=== PATIENT | male | born 1945 | race Caucasian/White ===

== ENCOUNTER 2019-10-25 15:23 | Inpatient (IN) | payer MEDICARE, OTHER ==
[2019-10-25] MEDS ORDERED: Sodium Phosphate ADULT ENEMA* 118 ml bottle PR ONE (15:32)
[2019-10-25] MEDS ORDERED: Acetaminophen TAB* 325 MG PO PRN (15:32)
[2019-10-25] MEDS ORDERED: Ondansetron ODT TAB* 4 MG SL PRN (15:32)
[2019-10-25] MEDS: Morphine INJ* 4 MG/ML 1 ML SYRINGE (NEW SYRINGE VERSION) IV PRN (16:58)
[2019-10-25] MEDS: NS 0.9% 1000 ML** 1,000 ML IV SCH (16:58)
[2019-10-25] MEDS: Enoxaparin(*) 40 MG/0.4 ML SYR SUBCUT SCH (16:58)
[2019-10-25] MEDS: Polyethylene Glycol 3350* 17 GM PACKET PO SCH (20:35)
[2019-10-25] MEDS: oxyCODONE SR TAB(*) 15 MG TAB.SR PO SCH (20:35)
[2019-10-26] MEDS: oxyCODONE TAB* 5 MG TAB PO PRN ×2 (02:01→06:26)
[2019-10-26] MEDS: Levothyroxine TAB* 100 MCG TAB PO SCH (05:34)
[2019-10-26 06:58] LABS: Albumin 3.2 g/dL (3.2-5.2); Albumin/Globulin Ratio 1.1 (1-3); Calcium 8.5 mg/dL (8.6-10.3); EGFR African American 111.1 (>60); EGFR Non-African American 91.8 (>60); Potassium 4.7 mmol/L (3.5-5.0); Total Protein 6.2 g/dL (6.4-8.9)
[2019-10-26] MEDS: oxyCODONE SR TAB(*) 15 MG TAB.SR PO SCH ×2 (08:56→20:38)
[2019-10-26] MEDS: Lactulose* 15 ML UDC PO SCH ×3 (08:57→20:38)
[2019-10-26] MEDS: Omeprazole CAP(NF) 10 MG CAP PO SCH (09:06)
--- NOTE | 2019-10-26 10:10 | PN ---
Progress Note - Progress Note Date of Service: 10/26/19 SOAP: Subjective: []No better today. He has had more UO and inspector poising urine. Still nausea and not eating much. No BM today. Sever back and flank pain that has been present. Relevant history: one week N/V then constipation, not eating much, dark concentrated urine but also some groin edema. Acetaminophen (Tylenol Tab*) 650 mg PO Q4H PRN PRN Reason: Pain - Mild or MURGUIA Enoxaparin Sodium (Lovenox(*)) 40 mg SUBCUT Q24H [facility] Last Admin: 10/25/19 16:58 Dose: 40 mg Sodium Chloride (Ns 0.9% 1000 Ml) 1,000 mls @ 150 mls/hr IV PER RATE [facility] Last Admin: 10/25/19 16:58 Dose: 150 mls/hr Lactulose (Lactulose*) 15 ml PO TID [facility] Last Admin: 10/26/19 08:57 Dose: 15 ml Levothyroxine Sodium (Synthroid Tab*) 100 mcg PO DAILY@0600 [facility] Last Admin: 10/26/19 05:34 Dose: 100 mcg Lorazepam (Ativan Tab(*)) 0.5 mg PO Q4H PRN PRN Reason: nausea/anxiety/insomnia Morphine Sulfate (Morphine Inj (Syringe)*) 4 mg IV Q4H PRN PRN Reason: PAIN - SEVERE Last Admin: 10/25/19 16:58 Dose: 4 mg Omeprazole (Prilosec Cap(Nf)) 10 mg PO DAILY [facility] Last Admin: 10/26/19 09:06 Dose: Not Given Ondansetron HCl (Zofran Odt Tab*) 4 mg SL Q6H PRN PRN Reason: NAUSEA/VOMITING Oxycodone HCl (Oxycontin(*)) 15 mg PO BID [facility] Last Admin: 10/26/19 08:56 Dose: 15 mg Oxycodone HCl (Roxycodone Tab*) 10 mg PO Q4H PRN PRN Reason: PAIN - MODERATE Last Admin: 10/26/19 06:26 Dose: 10 mg Polyethylene Glycol/Electrolytes (Miralax*) 17 gm PO 2100 [facility] Last Admin: 10/25/19 20:35 Dose: 17 gm Prochlorperazine Edisylate (Compazine Inj*) 10 mg IV Q6H PRN PRN Reason: NAUSEA/VOMITING Objective: [] Vital Signs Temp Pulse Resp BP Pulse Ox 99 F 78 18 137/85 98 10/26/19 03:20 10/26/19 03:20 10/26/19 08:58 10/26/19 03:20 10/26/19 03:20 HEENT: OM moist today, no LAD CTA RRR S1S2 +BS distended, NT rectal: no stool in vault. NRT Groin: scrotal edema Ext tr edema Assessment: []74 year old with 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 The adrenal tumor was non secreting in 2016. Presentation yesterday with one week of constipation, Nausea and abd pain , labs w/ hyponatremia. Ddx for decreased sodium is lead by dehydration based on history, SIADH is possible but uncommon in adenocarcinima, could have adrenal insufficiency. Plan: []1. Continue NS for time being, follow NA 2. Continue Lactulose TID 3. Check AM cortisone 4. No change in pain medication. 5. If in hospital on Tuesday, US guided Bx of adrenal bed mass.
[2019-10-26] MEDS: NS 0.9% 1000 ML** 1,000 ML IV SCH ×2 (13:32→20:39)
[2019-10-26] MEDS: Enoxaparin(*) 40 MG/0.4 ML SYR SUBCUT SCH (15:42)
[2019-10-26] MEDS: Morphine INJ* 4 MG/ML 1 ML SYRINGE (NEW SYRINGE VERSION) IV PRN ×2 (18:19→23:59)
[2019-10-26] MEDS: LORazepam TAB(*) 0.5 MG PO PRN (20:38)
[2019-10-26] MEDS: Polyethylene Glycol 3350* 17 GM PACKET PO SCH (20:38)
[2019-10-27 04:59] LABS: Hematocrit 37 % (42-52); Hemoglobin 13.3 g/dL (14.0-18.0); Mean Corpuscular HGB Conc 36 g/dL (31-36); Mean Corpuscular Hemoglobin 33 pg (27-31); Mean Corpuscular Volume 93 fL (80-94); Platelet Count 221 10^3/uL (150-450); Red Blood Count 4.02 10^6 /uL (4.18-5.48); Red Cell Distribution Width 13 % (10-15); White Blood Count 11.5 10^3/uL (3.5-10.8)
[2019-10-27 05:04] LABS: ABS Lymphocytes 0.6 10^3/ul (1.0-4.8); ABS Neutrophils 9.5 10^3/ul (1.5-7.7); Eosinophil % 0.3 %; Lymphocyte % 5.4 %
[2019-10-27] MEDS: Morphine INJ* 4 MG/ML 1 ML SYRINGE (NEW SYRINGE VERSION) IV PRN ×2 (05:05→21:14)
[2019-10-27] MEDS: Levothyroxine TAB* 100 MCG TAB PO SCH (05:05)
[2019-10-27 05:16] LABS: Albumin 3.4 g/dL (3.2-5.2); Albumin/Globulin Ratio 1.1 (1-3); BUN/Creatinine Ratio 20.3 (8-20); Calcium 8.1 mg/dL (8.6-10.3); EGFR African American 135.6 (>60); EGFR Non-African American 112.1 (>60); Globulin 3.2 g/dL (2-4); Potassium 4.5 mmol/L (3.5-5.0); Total Bilirubin 1.2 mg/dL (0.2-1.0); Total Protein 6.6 g/dL (6.4-8.9)
[2019-10-27] MEDS: PROCHLORPERAZINE INJ 5 MG/ML 2 ML VIAL IV PRN (05:19)
[2019-10-27] MEDS: Omeprazole CAP(NF) 10 MG CAP PO SCH (09:08)
[2019-10-27] MEDS: Lactulose* 15 ML UDC PO SCH ×3 (09:10→21:15)
[2019-10-27] MEDS: oxyCODONE SR TAB(*) 15 MG TAB.SR PO SCH (09:10)
--- NOTE | 2019-10-27 10:53 | PN ---
Progress Note - Progress Note Date of Service: 10/27/19 SOAP: Subjective: [Feels generally "miserable". He has trouble articulating exactly what he is experiencing. He continues to have generalized pain, but most concentrated in the R flank region. He believes the morphine is more effective in controlling his pain than his usual oxycodone. He would like to switch from long acting oxycodone to long acting morphine. ] Objective: [ Vital Signs: Temp Pulse Resp BP Pulse Ox 97.9 F 90 18 139/79 97 10/27/19 03:19 10/27/19 03:19 10/27/19 09:10 10/27/19 03:19 10/27/19 03:19 Acetaminophen (Tylenol Tab*) 650 mg PO Q4H PRN PRN Reason: Pain - Mild or MURGUIA Enoxaparin Sodium (Lovenox(*)) 40 mg SUBCUT Q24H [facility] Last Admin: 10/26/19 15:42 Dose: Not Given Furosemide (Lasix Iv*) 40 mg IV DAILY [facility] Sodium Chloride (Ns 0.9% 1000 Ml) 1,000 mls @ 150 mls/hr IV PER RATE [facility] Last Admin: 10/26/19 20:39 Dose: 150 mls/hr Lactulose (Lactulose*) 15 ml PO TID [facility] Last Admin: 10/27/19 09:10 Dose: 15 ml Levothyroxine Sodium (Synthroid Tab*) 100 mcg PO DAILY@0600 [facility] Last Admin: 10/27/19 05:05 Dose: 100 mcg Lorazepam (Ativan Tab(*)) 0.5 mg PO Q4H PRN PRN Reason: nausea/anxiety/insomnia Last Admin: 10/26/19 20:38 Dose: 0.5 mg Morphine Sulfate (Morphine Inj (Syringe)*) 4 mg IV Q4H PRN PRN Reason: PAIN - SEVERE Last Admin: 10/27/19 05:05 Dose: 4 mg Morphine Sulfate (Ms Contin(*)) 15 mg PO Q12H [facility] Omeprazole (Prilosec Cap(Nf)) 10 mg PO DAILY [facility] Last Admin: 10/27/19 09:08 Dose: Not Given Ondansetron HCl (Zofran Odt Tab*) 4 mg SL Q6H PRN PRN Reason: NAUSEA/VOMITING Last Admin: 10/26/19 13:29 Dose: 4 mg Oxycodone HCl (Roxycodone Tab*) 10 mg PO Q4H PRN PRN Reason: PAIN - MODERATE Last Admin: 10/26/19 06:26 Dose: 10 mg Polyethylene Glycol/Electrolytes (Miralax*) 17 gm PO 2100 [facility] Last Admin: 10/26/19 20:38 Dose: 17 gm Prochlorperazine Edisylate (Compazine Inj*) 10 mg IV Q6H PRN PRN Reason: NAUSEA/VOMITING Last Admin: 10/27/19 05:19 Dose: 10 mg Senna (Senokot 8.6 Mg Tab*) 1 tab PO BID [facility] Sodium Biphosphate/Sodium Phosphate (Fleet Enema*) 1 bottle ND DAILY PRN PRN Reason: CONSTIPATION Laboratory Results - last 24 hr 10/27/19 10/27/19 04:50 04:50 WBC 11.5 H RBC 4.02 L Hgb 13.3 L Hct 37 L MCV 93 MCH 33 H MCHC 36 RDW 13 Plt Count 221 MPV 7.0 L Neut % (Auto) 85.1 Lymph % (Auto) 5.4 Band[place] % (Auto) 9.1 Eos % (Auto) 0.3 Baso % (Auto) 0.1 Absolute Neuts (auto) 9.5 H Absolute Lymphs (auto) 0.6 L Absolute Monos (auto) 1.0 H Absolute Eos (auto) 0.0 Absolute Basos (auto) 0.0 Absolute Nucleated RBC 0.0 Nucleated RBC % 0.0 Sodium 122 L Potassium 4.5 Chloride 91 L Carbon Dioxide 24 Anion Gap 7 BUN 14 Creatinine 0.69 Est GFR ( Amer) 135.6 Est GFR (Non-Af Amer) 112.1 BUN/Creatinine Ratio 20.3 H Glucose 106 H Calcium 8.1 L Total Bilirubin 1.20 H AST 67 H ALT 41 Alkaline Phosphatase 213 H Total Protein 6.6 Albumin 3.4 Globulin 3.2 Albumin/Globulin Ratio 1.1 Cortisol 22.32 Exam: Gen: uncomfortable appearing 74 yo male, freq changing position HEENT: MMM CV: RRR, no m/r/g Resp: CTA, no w/c/r Abd: distended, hypoactive BS, nonTTP Ext: 2+ LE edema Skin: no rashes] Assessment: []74 year old with 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 The adrenal tumor was non secreting in 2016. Admitted with one week of constipation, Nausea and abd pain, labs w/ hyponatremia. Hyponatremia is improving slightly with IVF, but he has progressive edema with persistent constipation. AM cortisol WNL. Ddx SIADH, hypothyroidism, hypovolemia. Suspect hypothyroidism. Plan: 1. Hyponatremia - check TSH, serum osmolality and urine osmolality (before Lasix) - cont IVF and start lasix to concentrate serum Na levels while excreting excess free water - cont to monitor 2. Constipation - h/o spinal cord injury with decreased rectal sensation - start stimulant laxatives, cont lactulose 3. Malignancy - pending US guided bx of adrenal bed - complete inpatient Tuesday if he remains admitted 4. 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
[2019-10-27] MEDS: Morphine TAB Extended Release (*) 15 MG TAB.ER PO SCH ×2 (11:47→23:29)
[2019-10-27] MEDS: Senna TAB 8.6 mg* TAB PO SCH ×2 (11:47→21:13)
[2019-10-27] MEDS: Furosemide IV* 10 MG/ML VIAL (40 MG) IV SCH (11:48)
[2019-10-27 12:30] LABS: TSH (Thyroid Stimulating Horm) 3.12 mcIU/mL (0.34-5.60)
[2019-10-27 12:57] LABS: Urine Appearance Clear; Urine Bilirubin Negative (Negative); Urine Blood 1+ (Negative); Urine Color Yellow; Urine Glucose Negative (Negative); Urine Ketones Negative (Negative); Urine Nitrite Negative (Negative); Urine Protein Negative (Negative); Urine Specific Gravity 1.006 (1.010-1.030); Urine Urobilinogen Negative (Negative)
[2019-10-27 13:02] LABS: Urine Bacteria Absent (Absent); Urine Red Blood Cell Absent (Absent); Urine Squamous Epithelial Cell Present (Absent); Urine White Blood Cell Absent (Absent)
[2019-10-27] MEDS: NS 0.9% 1000 ML** 1,000 ML IV SCH ×2 (13:16→21:24)
[2019-10-27] MEDS: Enoxaparin(*) 40 MG/0.4 ML SYR SUBCUT SCH (17:21)
[2019-10-27] MEDS: Polyethylene Glycol 3350* 17 GM PACKET PO SCH (21:15)
[2019-10-27] MEDS: LORazepam TAB(*) 0.5 MG PO PRN (23:36)
[2019-10-28] MEDS: Morphine INJ* 4 MG/ML 1 ML SYRINGE (NEW SYRINGE VERSION) IV PRN ×3 (00:16→22:20)
[2019-10-28] MEDS: PROCHLORPERAZINE INJ 5 MG/ML 2 ML VIAL IV PRN (00:23)
[2019-10-28 05:50] LABS: Hematocrit 35 % (42-52); Hemoglobin 12.5 g/dL (14.0-18.0); Mean Corpuscular HGB Conc 36 g/dL (31-36); Mean Corpuscular Hemoglobin 33 pg (27-31); Mean Corpuscular Volume 94 fL (80-94); Mean Platelet Volume 6.7 fL (7.4-10.4); Platelet Count 193 10^3/uL (150-450); Red Blood Count 3.73 10^6 /uL (4.18-5.48); Red Cell Distribution Width 13 % (10-15); White Blood Count 12.2 10^3/uL (3.5-10.8)
[2019-10-28] MEDS: NS 0.9% 1000 ML** 1,000 ML IV SCH (06:10)
[2019-10-28] MEDS: Levothyroxine TAB* 100 MCG TAB PO SCH (06:11)
[2019-10-28] MEDS: oxyCODONE TAB* 5 MG TAB PO PRN ×2 (06:11→19:58)
[2019-10-28 06:15] LABS: BUN/Creatinine Ratio 14.6 (8-20); Calcium 7.9 mg/dL (8.6-10.3); EGFR African American 111.1 (>60); EGFR Non-African American 91.8 (>60); Magnesium 1.8 mg/dL (1.9-2.7); Potassium 4.5 mmol/L (3.5-5.0)
[2019-10-28] MEDS: Lactulose* 15 ML UDC PO SCH ×3 (08:59→21:16)
[2019-10-28] MEDS: Furosemide IV* 10 MG/ML VIAL (40 MG) IV SCH (09:00)
[2019-10-28] MEDS: Senna TAB 8.6 mg* TAB PO SCH ×3 (09:00→21:15)
[2019-10-28] MEDS: Omeprazole CAP(NF) 10 MG CAP PO SCH (09:17)
--- NOTE | 2019-10-28 10:34 | PN ---
Progress Note - Progress Note Date of Service: 10/28/19 SOAP: Subjective: [Remains constipated. Remains uncomfortable. Reports he is having difficulty remembering the details of our conversation yesterday. ] Objective: [ Vital Signs: Temp Pulse Resp BP Pulse Ox 97.9 F 90 18 126/72 94 10/28/19 07:15 10/28/19 07:15 10/28/19 08:56 10/28/19 07:15 10/28/19 07:15 Acetaminophen (Tylenol Tab*) 650 mg PO Q4H PRN PRN Reason: Pain - Mild or MURGUIA Enoxaparin Sodium (Lovenox(*)) 40 mg SUBCUT Q24H [facility] Last Admin: 10/27/19 17:21 Dose: Not Given Furosemide (Lasix Iv*) 40 mg IV DAILY [facility] Last Admin: 10/28/19 09:00 Dose: 40 mg Lactulose (Lactulose*) 15 ml PO TID [facility] Last Admin: 10/28/19 08:59 Dose: 15 ml Levothyroxine Sodium (Synthroid Tab*) 100 mcg PO DAILY@0600 [facility] Last Admin: 10/28/19 06:11 Dose: 100 mcg Lorazepam (Ativan Tab(*)) 0.5 mg PO Q4H PRN PRN Reason: nausea/anxiety/insomnia Last Admin: 10/27/19 23:36 Dose: 0.5 mg Morphine Sulfate (Morphine Inj (Syringe)*) 4 mg IV Q4H PRN PRN Reason: PAIN - SEVERE Last Admin: 10/28/19 00:16 Dose: 4 mg Morphine Sulfate (Ms Contin(*)) 15 mg PO Q12H [facility] Last Admin: 10/27/19 23:29 Dose: 15 mg Omeprazole (Prilosec Cap(Nf)) 10 mg PO DAILY [facility] Last Admin: 10/28/19 09:17 Dose: Not Given Ondansetron HCl (Zofran Odt Tab*) 4 mg SL Q6H PRN PRN Reason: NAUSEA/VOMITING Last Admin: 10/26/19 13:29 Dose: 4 mg Oxycodone HCl (Roxycodone Tab*) 10 mg PO Q4H PRN PRN Reason: PAIN - MODERATE Last Admin: 10/28/19 06:11 Dose: 10 mg Polyethylene Glycol/Electrolytes (Miralax*) 17 gm PO 2100 [facility] Last Admin: 10/27/19 21:15 Dose: 17 gm Prochlorperazine Edisylate (Compazine Inj*) 10 mg IV Q6H PRN PRN Reason: NAUSEA/VOMITING Last Admin: 10/28/19 00:23 Dose: 10 mg Senna (Senokot 8.6 Mg Tab*) 2 tab PO BID [facility] Sodium Biphosphate/Sodium Phosphate (Fleet Enema*) 1 bottle NM DAILY PRN PRN Reason: CONSTIPATION Laboratory Results - last 24 hr 10/27/19 10/27/19 10/27/19 04:50 04:50 12:30 WBC RBC Hgb Hct MCV MCH MCHC RDW Plt Count MPV Sodium 122 L Potassium 4.5 Chloride 91 L Carbon Dioxide 24 Anion Gap 7 BUN 14 Creatinine 0.69 Est GFR ( Amer) 135.6 Est GFR (Non-Af Amer) 112.1 BUN/Creatinine Ratio 20.3 H Glucose 106 H Serum Osmolality 267 L Calcium 8.1 L Magnesium Total Bilirubin 1.20 H AST 67 H ALT 41 Alkaline Phosphatase 213 H Total Protein 6.6 Albumin 3.4 Globulin 3.2 Albumin/Globulin Ratio 1.1 TSH 3.12 Cortisol 22.32 Urine Color Yellow Urine Appearance Clear Urine pH 6.0 Ur Specific Story 1.006 L Urine Protein Negative Urine Ketones Negative Urine Blood 1+ A Urine Nitrate Negative Urine Bilirubin Negative Urine Urobilinogen Negative Ur Leukocyte Esterase Negative Urine WBC (Auto) Absent Urine RBC (Auto) Absent Ur Squamous Epith Cells Present A Urine Bacteria Absent Urine Osmolality U Sodium Concentration Urine Glucose Negative 10/27/19 10/27/19 10/28/19 12:30 12:30 05:39 WBC 12.2 H RBC 3.73 L Hgb 12.5 L Hct 35 L MCV 94 MCH 33 H MCHC 36 RDW 13 Plt Count 193 MPV 6.7 L Sodium Potassium Chloride Carbon Dioxide Anion Gap BUN Creatinine Est GFR ( Amer) Est GFR (Non-Af Amer) BUN/Creatinine Ratio Glucose Serum Osmolality Calcium Magnesium Total Bilirubin AST ALT Alkaline Phosphatase Total Protein Albumin Globulin Albumin/Globulin Ratio TSH Cortisol Urine Color Urine Appearance Urine pH Ur Specific Story Urine Protein Urine Ketones Urine Blood Urine Nitrate Urine Bilirubin Urine Urobilinogen Ur Leukocyte Esterase Urine WBC (Auto) Urine RBC (Auto) Ur Squamous Epith Cells Urine Bacteria Urine Osmolality 304 U Sodium Concentration 75 Urine Glucose 10/28/19 05:39 WBC RBC Hgb Hct MCV MCH MCHC RDW Plt Count MPV Sodium 124 L Potassium 4.5 Chloride 93 L Carbon Dioxide 27 Anion Gap 4 BUN 12 Creatinine 0.82 Est GFR ( Amer) 111.1 Est GFR (Non-Af Amer) 91.8 BUN/Creatinine Ratio 14.6 Glucose 102 H Serum Osmolality Calcium 7.9 L Magnesium 1.8 L Total Bilirubin AST ALT Alkaline Phosphatase Total Protein Albumin Globulin Albumin/Globulin Ratio TSH Cortisol Urine Color Urine Appearance Urine pH Ur Specific Story Urine Protein Urine Ketones Urine Blood Urine Nitrate Urine Bilirubin Urine Urobilinogen Ur Leukocyte Esterase Urine WBC (Auto) Urine RBC (Auto) Ur Squamous Epith Cells Urine Bacteria Urine Osmolality U Sodium Concentration Urine Glucose Exam: Gen: uncomfortable appearing 74 yo male, seated in a chair at bedside HEENT: MMM CV: RRR, no m/r/g Resp: CTA, no w/c/r Abd: distended, hypoactive BS, mild TTP diffusely Ext: 1-2+ LE edema Skin: no rashes] Assessment: []74 year old with 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 The adrenal tumor was non secreting in 2016. Admitted with one week of constipation, Nausea and abd pain, labs w/ hyponatremia. Hyponatremia is improving slightly with IVF, but he has progressive edema with persistent constipation. AM cortisol and TSH WNL. Serum osm 267 with urin osm 304 with random urine sodium of 75. This testing is after IV NS, but c/w at a picture of SIADH. Plan: 1. Hyponatremia - likely SIADH - stop IVF, cont Lasix today (consider stopping tomorrow based on response) - 2L fluid restriction 2. Constipation - h/o spinal cord injury with decreased rectal sensation - increase senna today, cont lactulose, repeat Fleet enema 3. Malignancy - pending US/CT guided bx of adrenal bed - ordered for tomorrow as he does not appear to be nearing dc 4. 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 ]
[2019-10-28] MEDS: Morphine TAB Extended Release (*) 15 MG TAB.ER PO SCH ×2 (11:20→21:15)
[2019-10-28] MEDS: Sodium Phosphate ADULT ENEMA* 118 ml bottle PR PRN (12:51)
[2019-10-28] MEDS: Enoxaparin(*) 40 MG/0.4 ML SYR SUBCUT SCH (14:42)
[2019-10-28] MEDS ORDERED: Calcium Carbonate CHEW TAB* 500 MG (TUMS) PO PRN (19:38)
[2019-10-28] MEDS: Simethicone TAB* 80 MG TAB.CHEW PO PRN (19:49)
[2019-10-28] MEDS: Polyethylene Glycol 3350* 17 GM PACKET PO SCH (21:16)
[2019-10-29] MEDS: Levothyroxine TAB* 100 MCG TAB PO SCH (06:33)
[2019-10-29] MEDS: Lactulose* 15 ML UDC PO SCH ×3 (08:43→21:41)
[2019-10-29] MEDS: Senna TAB 8.6 mg* TAB PO SCH ×2 (08:43→21:38)
[2019-10-29] MEDS: Furosemide IV* 10 MG/ML VIAL (40 MG) IV SCH (08:43)
[2019-10-29] MEDS: Omeprazole CAP(NF) 10 MG CAP PO SCH (08:45)
[2019-10-29] MEDS: oxyCODONE TAB* 5 MG TAB PO PRN ×2 (08:56→21:39)
[2019-10-29 09:53] LABS: BUN/Creatinine Ratio 21.1 (8-20); Calcium 8.2 mg/dL (8.6-10.3); EGFR African American 121.3 (>60); EGFR Non-African American 100.3 (>60); Magnesium 1.8 mg/dL (1.9-2.7); Potassium 4.2 mmol/L (3.5-5.0)
[2019-10-29] MEDS ORDERED: Iodixanol* (CONTRAST) 320 MG/ML 100 ML SDV IV ONE (10:09)
[2019-10-29] MEDS: Simethicone TAB* 80 MG TAB.CHEW PO PRN (10:23)
[2019-10-29] MEDS: Morphine TAB Extended Release (*) 15 MG TAB.ER PO SCH ×2 (11:02→21:40)
[2019-10-29 11:23] LABS: Activated Partial Thrombo Time 39.3 seconds (26.0-38.0); INR 1.47 (0.82-1.09)
[2019-10-29] MEDS: Morphine INJ* 4 MG/ML 1 ML SYRINGE (NEW SYRINGE VERSION) IV PRN (13:26)
[2019-10-29] MEDS ORDERED: fentaNYL* 50 MCG/ML 2 ML VIAL (100 MCG VIAL) ONE (14:14)
[2019-10-29] MEDS: Polyethylene Glycol 3350* 17 GM PACKET PO SCH (21:38)
[2019-10-29] MEDS: FAMOTIDINE 10 MG PO SCH (21:38)
[2019-10-29] MEDS: Enoxaparin(*) 40 MG/0.4 ML SYR SUBCUT SCH (21:43)
[2019-10-30] MEDS: oxyCODONE TAB* 5 MG TAB PO PRN (01:08)
[2019-10-30] MEDS: Simethicone TAB* 80 MG TAB.CHEW PO PRN ×3 (01:10→22:20)
[2019-10-30] MEDS: Levothyroxine TAB* 100 MCG TAB PO SCH (05:15)
[2019-10-30] MEDS: FAMOTIDINE 10 MG PO SCH ×2 (08:25→21:58)
[2019-10-30] MEDS: Senna TAB 8.6 mg* TAB PO SCH ×2 (08:25→21:58)
[2019-10-30] MEDS: Lactulose* 15 ML UDC PO SCH ×3 (08:25→21:58)
[2019-10-30] MEDS: Morphine INJ* 4 MG/ML 1 ML SYRINGE (NEW SYRINGE VERSION) IV PRN ×2 (09:05→15:20)
[2019-10-30] MEDS: Furosemide IV* 10 MG/ML VIAL (40 MG) IV SCH (09:08)
[2019-10-30] MEDS ORDERED: Demeclocycline TAB* 150 MG PO ONE (09:37)
[2019-10-30] MEDS: Sodium Chloride TAB* 1 GM PO SCH ×3 (10:30→21:58)
[2019-10-30] MEDS: Morphine TAB Extended Release (*) 15 MG TAB.ER PO SCH ×2 (12:30→22:20)
[2019-10-30] MEDS: Enoxaparin(*) 40 MG/0.4 ML SYR SUBCUT SCH (14:56)
[2019-10-30] MEDS: Polyethylene Glycol 3350* 17 GM PACKET PO SCH (21:59)
[2019-10-31] MEDS: Sodium Phosphate ADULT ENEMA* 118 ml bottle PR PRN (03:56)
[2019-10-31] MEDS: Morphine INJ* 4 MG/ML 1 ML SYRINGE (NEW SYRINGE VERSION) IV PRN ×3 (03:57→13:07)
[2019-10-31] MEDS: Levothyroxine TAB* 100 MCG TAB PO SCH (05:49)
[2019-10-31 07:28] LABS: BUN/Creatinine Ratio 26.9 (8-20); Calcium 8.6 mg/dL (8.6-10.3); EGFR African American 96.1 (>60); EGFR Non-African American 79.4 (>60); Potassium 3.9 mmol/L (3.5-5.0)
[2019-10-31] MEDS: Senna TAB 8.6 mg* TAB PO SCH ×2 (09:09→21:45)
[2019-10-31] MEDS: Lactulose* 15 ML UDC PO SCH ×3 (09:09→21:43)
[2019-10-31] MEDS: FAMOTIDINE 10 MG PO SCH ×2 (09:09→21:43)
[2019-10-31] MEDS: Sodium Chloride TAB* 1 GM PO SCH ×3 (09:09→21:45)
[2019-10-31] MEDS: Morphine TAB Extended Release (*) 15 MG TAB.ER PO SCH ×2 (11:19→23:48)
[2019-10-31] MEDS: Simethicone TAB* 80 MG TAB.CHEW PO PRN (13:05)
[2019-10-31] MEDS: oxyCODONE TAB* 5 MG TAB PO PRN ×2 (14:17→21:44)
[2019-10-31] MEDS: Enoxaparin(*) 40 MG/0.4 ML SYR SUBCUT SCH (16:14)
[2019-10-31] MEDS: Polyethylene Glycol 3350* 17 GM PACKET PO SCH (21:47)
[2019-11-01] MEDS: Sodium Phosphate ADULT ENEMA* 118 ml bottle PR PRN (02:36)
[2019-11-01] MEDS: LORazepam TAB(*) 0.5 MG PO PRN (03:03)
[2019-11-01] MEDS: Levothyroxine TAB* 100 MCG TAB PO SCH (07:43)
[2019-11-01] MEDS: Sodium Chloride TAB* 1 GM PO SCH ×3 (09:06→21:58)
[2019-11-01] MEDS: Lactulose* 15 ML UDC PO SCH ×3 (09:06→21:57)
[2019-11-01] MEDS: FAMOTIDINE 10 MG PO SCH ×2 (09:06→21:57)
[2019-11-01] MEDS: Senna TAB 8.6 mg* TAB PO SCH ×2 (09:06→21:58)
[2019-11-01] MEDS: Morphine INJ* 4 MG/ML 1 ML SYRINGE (NEW SYRINGE VERSION) IV PRN (09:26)
[2019-11-01] MEDS: Morphine TAB Extended Release (*) 15 MG TAB.ER PO SCH ×2 (11:06→21:58)
--- NOTE | 2019-11-01 12:34 | PN ---
Progress Note - Progress Note Date of Service: 11/01/19 SOAP: Subjective: [He is very sedated today, but per MAR recently received IV morphine. He has difficulty keep his eyes open during the interview. Denies any complaints. ] Objective: [ Vital Signs: Temp Pulse Resp BP Pulse Ox 97.3 F 104 19 118/66 98 11/01/19 11:15 11/01/19 11:15 11/01/19 11:15 11/01/19 11:15 11/01/19 11:15 Acetaminophen (Tylenol Tab*) 650 mg PO Q4H PRN PRN Reason: Pain - Mild or MURGUIA Calcium Carbonate (Tums*) 500 mg PO Q4H PRN PRN Reason: INDIGESTION Last Admin: 10/29/19 11:10 Dose: 500 mg Enoxaparin Sodium (Lovenox(*)) 40 mg SUBCUT Q24H [facility] Last Admin: 10/31/19 16:14 Dose: 40 mg Lactulose (Lactulose*) 15 ml PO TID [facility] Last Admin: 11/01/19 09:06 Dose: 15 ml Levothyroxine Sodium (Synthroid Tab*) 100 mcg PO DAILY@0600 [facility] Last Admin: 11/01/19 07:43 Dose: 100 mcg Lorazepam (Ativan Tab(*)) 0.5 mg PO Q4H PRN PRN Reason: nausea/anxiety/insomnia Last Admin: 11/01/19 03:03 Dose: 0.5 mg Morphine Sulfate (Morphine Inj (Syringe)*) 4 mg IV Q4H PRN PRN Reason: PAIN - SEVERE Last Admin: 11/01/19 09:26 Dose: 4 mg Morphine Sulfate (Ms Contin(*)) 15 mg PO Q12H [facility] Last Admin: 11/01/19 11:06 Dose: 15 mg Pto:Famotidine 10mg (Tab) 1 dose PO Q12HR [facility] Last Admin: 11/01/19 09:06 Dose: 1 dose Ondansetron HCl (Zofran Odt Tab*) 4 mg SL Q6H PRN PRN Reason: NAUSEA/VOMITING Last Admin: 10/26/19 13:29 Dose: 4 mg Oxycodone HCl (Roxycodone Tab*) 10 mg PO Q4H PRN PRN Reason: PAIN - MODERATE Last Admin: 10/31/19 21:44 Dose: 10 mg Polyethylene Glycol/Electrolytes (Miralax*) 17 gm PO 2100 [facility] Last Admin: 10/31/19 21:47 Dose: 17 gm Prochlorperazine Edisylate (Compazine Inj*) 10 mg IV Q6H PRN PRN Reason: NAUSEA/VOMITING Last Admin: 10/28/19 00:23 Dose: 10 mg Senna (Senokot 8.6 Mg Tab*) 2 tab PO BID [facility] Last Admin: 11/01/19 09:06 Dose: 2 tab Simethicone (Mylicon Tab*) 80 mg PO Q6H PRN PRN Reason: gas pain Last Admin: 10/31/19 13:05 Dose: 80 mg Sodium Biphosphate/Sodium Phosphate (Fleet Enema*) 1 bottle [place] DAILY PRN PRN Reason: CONSTIPATION Last Admin: 11/01/19 02:36 Dose: 1 bottle Sodium Chloride (Sodium Chloride Tab*) 1 gm PO TID [facility] Last Admin: 11/01/19 09:06 Dose: 1 gm Exam: Gen: lethargic, comfortable appearing HEENT: MMM CV: RRR, no m/r/g Resp: CTA, no w/c/r Abd: mildly distended, BS pend, mild TTP diffusely Ext: 1-2+ LE edema Skin: no rashes] Assessment: []74 year old with 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 The adrenal tumor was non secreting in 2016. Admitted with one week of constipation, Nausea and abd pain, labs w/ hyponatremia. 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 Recommended Hospice as he would be unlikely to receive any benefit from chemotherapy based on his prior tolerance and in the setting of a secondary, at least limited stage NSCLC. Plan: 1. SIADH - cont fluid restriction, salt tabs and demeclocycline at this time 2. Constipation, improved - h/o spinal cord injury with decreased rectal sensation - cont bowel regimen 3. Malignancy - recurrent adrenocortical carcinoma and new dx of at least limited stage NSCLC - recommend Hospice 4. 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 Palliative consultation pending for today. Patient would like to return home, but I am unsure that he has the support necessary for home hospice
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
[2019-11-01] MEDS ORDERED: LORazepam TAB(*) 0.5 MG PO PRN (16:32)
[2019-11-01] MEDS ORDERED: Morphine INJ* 4 MG/ML 1 ML SYRINGE (NEW SYRINGE VERSION) IV PRN (16:34)
[2019-11-01] MEDS ORDERED: oxyCODONE TAB* 5 MG TAB PO PRN (16:35)
[2019-11-01] MEDS: Enoxaparin(*) 40 MG/0.4 ML SYR SUBCUT SCH (16:42)
[2019-11-01] MEDS: Polyethylene Glycol 3350* 17 GM PACKET PO SCH (21:57)
[2019-11-02] MEDS: Levothyroxine TAB* 100 MCG TAB PO SCH (06:13)
[2019-11-02 08:00] VITALS: BP 99/57
[2019-11-02] MEDS ORDERED: Morphine ORAL CONCENTRATE* 5 MG/0.25 ML ORAL.SYRIN PO PRN (09:50)
--- NOTE | 2019-11-02 10:06 | PN ---
Progress Note - Progress Note Date of Service: 11/02/19 SOAP: Subjective: [Mental status did not improve significantly through out the day yesterday. He did wake up enough to take his evening medications and eat a few bites of dinner. Overnight, he got up and out of bed briefly and found to be hypoxic and hypotensive. He was placed on supplemental oxygen and seemed to be comfortable the remainder of the night. Plan for comfort measures only following palliative consultation yesterday with Dr Beckett and HCP. ] Objective: [ Vital Signs: Temp Pulse Resp BP Pulse Ox 97.7 F 102 22 99/57 93 11/02/19 07:15 11/02/19 07:15 11/02/19 07:15 11/02/19 07:15 11/02/19 07:15 Lorazepam (Ativan Tab(*)) 0.5 mg PO Q4H PRN PRN Reason: NAUSEA/ANXIETY/INSOMNIA Morphine Sulfate (Morphine Inj (Syringe)*) 4 mg IV Q4H PRN PRN Reason: PAIN - SEVERE Morphine Sulfate (Morphine Oral Concentrate*) 10 mg PO Q2H PRN PRN Reason: pain- moderate Ondansetron HCl (Zofran Odt Tab*) 4 mg SL Q6H PRN PRN Reason: NAUSEA/VOMITING Last Admin: 10/26/19 13:29 Dose: 4 mg Prochlorperazine Edisylate (Compazine Inj*) 10 mg IV Q6H PRN PRN Reason: NAUSEA/VOMITING Last Admin: 10/28/19 00:23 Dose: 10 mg Exam: Gen: lethargic, comfortable appearing, he answers a few questions with single word answers with his eyes closed. Resp: regular, easy respirations Abd: mildly distended Ext: 1+ LE edema Psych: eyes closed, responds to voice Assessment: []74 year old with now confirmed recurrent adrenocortical carcinoma and new dx of adenocarcinoma of lung. Admitted with one week of constipation, Nausea and abd pain, labs w/ hyponatremia. 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 Patient has declined dramatically over the last 48 hours and plan is to pursue comfort measures only. Based on his new onset hypoxia, hypotension and fatigue suspect PE. No plans to escalate care of pursue additional interventions at this time. Discontinued all unnecessary oral medications. Plan: 1. Malignancy - recurrent adrenocortical carcinoma and new dx of at least limited stage NSCLC - recommend Hospice, comfort measures only 2. 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 Met with palliative physician, Dr Beckett, yesterday. Plan for Hospice and comfort measures only. He has declined significantly in the last 48h for unclear reasons. Question whether he has developed a PE. No plans to escalate care. Pursuing dc to hospice residence or [facility]. If he remains minimally responsive then it may be more appropriate to maintain comfort measures as an inpatient and avoid transfer.
[2019-11-02] MEDS: FAMOTIDINE 10 MG PO SCH (10:36)
[2019-11-02] MEDS: Lactulose* 15 ML UDC PO SCH (10:36)
[2019-11-02] MEDS: Sodium Chloride TAB* 1 GM PO SCH (10:36)
[2019-11-02] MEDS: Senna TAB 8.6 mg* TAB PO SCH (10:36)
[2019-11-02 10:52] LABS: ABS Lymphocytes 0.8 10^3/ul (1.0-4.8); ABS Monocytes 1.5 10^3/ul (0-0.8); ABS Neutrophils 12.7 10^3/ul (1.5-7.7); Eosinophil % 0.2 %; Hematocrit 41 % (42-52); Hemoglobin 14.2 g/dL (14.0-18.0); Lymphocyte % 5.6 %; Mean Corpuscular HGB Conc 35 g/dL (31-36); Mean Corpuscular Hemoglobin 33 pg (27-31); Mean Corpuscular Volume 94 fL (80-94); Mean Platelet Volume 7.1 fL (7.4-10.4); Nucleated Red Blood Cells % 0.1; Platelet Count 261 10^3/uL (150-450); Red Blood Count 4.36 10^6 /uL (4.18-5.48); Red Cell Distribution Width 14 % (10-15); White Blood Count 15.1 10^3/uL (3.5-10.8)
[2019-11-02 11:06] LABS: Albumin 2.7 g/dL (3.2-5.2); Albumin/Globulin Ratio 0.8 (1-3); BUN/Creatinine Ratio 21.2 (8-20); Calcium 8.9 mg/dL (8.6-10.3); EGFR Non-African American 26.5 (>60); Globulin 3.4 g/dL (2-4); Potassium 4.7 mmol/L (3.5-5.0); Total Bilirubin 1.9 mg/dL (0.2-1.0); Total Protein 6.1 g/dL (6.4-8.9)
[2019-11-02] MEDS ORDERED: NS 0.9% 1000 ML** 1,000 ML IV SCH (11:30)
[2019-11-02] MEDS: Morphine ORAL CONCENTRATE* 5 MG/0.25 ML ORAL.SYRIN PO PRN ×2 (11:30→13:37)
--- NOTE | 2019-11-03 03:30 | DS ---
CC: Dr. Joselo Troy; Dr. Browning* DISCHARGE SUMMARY: DATE OF ADMISSION: 10/25/19 DATE OF : 11/02/19 PRIMARY CARE PROVIDER: Dr. Joselo Troy. CONSULTING PALLIATIVE PHYSICIAN: Dr. Maria Guadalupe Beckett. PRIMARY ONCOLOGIST AND ATTENDING PHYSICIAN: Dr. Alistair Browning* (dictated by ALISSA Gomes). DISCHARGING PROVIDER: ALISSA Gomes PRIMARY CAUSE OF AND SIGNIFICANT MEDICAL PROBLEMS DURING THIS HOSPITALIZATION: 1. Recurrent and likely metastatic adrenocortical carcinoma with relatively new diagnosis of at least limited stage non-small cell lung carcinoma. 2. Hyponatremia secondary to SIADH. 3. Chronic urinary retention secondary to prior spinal cord injury with frequent self-catheterization at home and received a Carranza catheter during this hospitalization. 4. Constipation. HOSPITAL IMAGIN. Abdominal x-ray 10/29/19 shows a bowel gas pattern that was unremarkable. Multiple areas of metallic foreign bodies scattered throughout the abdomen. 2. CT brain 10/29/19 shows no acute process. 3. CT guidance of abdominal biopsy. PATHOLOGY: Right retroperitoneal lymph node shows a poorly differentiated carcinoma morphologically compatible with adrenal primary origin. HOSPITAL COURSE: This was a 74-year-old gentleman who was treated in 2016 for adrenocortical carcinoma. This was resected and he received adjuvant chemotherapy and radiation which he tolerated quite poorly at that time. He had been in surveillance since that time and subsequently presented in August of this year with a new left lung mass which was eventually biopsied and found to be an adenocarcinoma consistent with the lung primary and histologically quite distinct from his known previous adrenocortical carcinoma. He had subsequently underwent a PET scan which showed multiple areas of increased uptake including right adrenal bed that had previously been resected as well as retroperitoneal lymph nodes, mediastinal lymph nodes and his left lung mass as well as areas within the liver. Plan at that time was to biopsy the right adrenal bed but the patient presented to the oncology clinic with uncontrolled pain, constipation and severe hyponatremia. He was subsequently admitted to the hospital for management of the above. Initial sodium was found to be 119. He had reported eating very little over the prior few days and appeared dry clinically and this was thought to be due to hypovolemia and he initially received volume replacement with normal saline. Sodium did improve slightly up to 121 mmol/L but did not improve beyond that. Subsequent urine studies were more consistent with the a picture of SIADH and the patient had developed significant lower extremity edema. Subsequently was slightly diuresed with Lasix and placed on mild fluid restriction and sodium improved to approximately 123 mmol/L. He was still complaining of abdominal pain and had severe constipation, eventually relieved with an aggressive bowel regimen. The patient underwent inpatient biopsy of right retroperitoneal lymph node which demonstrated a poorly differentiated carcinoma quite different histologically from his recently biopsied lung cancer and consistent with an adrenal primary, likely representing a recurrence of his adrenocortical carcinoma. He underwent CT of the brain for full staging which was negative for malignancy and discussed his treatment options with Dr. Browning. Due to his poor tolerance of prior chemotherapy as well as now a new diagnosis of at least limited stage non-small cell lung carcinoma did not seem that he would receive any significant benefit from chemotherapy for either of his cancers and decision was to pursue hospice therapy. The patient deteriorated quite rapidly over the next 48 hours. He received palliative consultation with Dr. Beckett which was primarily lead by his healthcare proxy, Arley. Plan at that time was to pursue comfort measures and consider discharge to the hospice care residence pending bed availability. The patient then developed severe hypoxia remains significantly lethargic and did not regain any significant level of consciousness. The patient's healthcare proxy wished to attempt to manage his electrolytes and decrease sedating medications in hopes that his level of consciousness would improve to construction equipment mechanic helper in some conversations regarding power of compliance attorney, but unfortunately the patient did not improve after a very short trial of IV fluids and subsequently at 1555 on the afternoon of 11/02/19. No indication for medical records auditor, the patient's family did not desire an autopsy. ALISSA GOMES [id number]/[facility] #: [id number] [facility] HOSPITALYuriy
== END 2019-11-02 15:55 | disposition expired | DRG 644 ==
LOC: MED 15:32 → OBSVTOIN 10-26 13:00
PROVIDERS: ADMIT Internal Medicine Hematology & Oncology; ATTEND Internal Medicine Hematology & Oncology
PROC: 0GB33ZX Excision of Right Adrenal Gland, Percutaneous Approach, Diagnostic (ICD-10-PCS; principal; 2019-10-29)
DX: C74.91 Malignant neoplasm of unspecified part of right adrenal gland (principal); E22.2 Syndrome of inappropriate secretion of antidiuretic hormone; E89.6 Postprocedural adrenocortical (-medullary) hypofunction; C78.02 Secondary malignant neoplasm of left lung; K59.00 Constipation, unspecified; E86.0 Dehydration; R33.8 Other retention of urine; E03.9 Hypothyroidism, unspecified; Z66 Do not resuscitate; I95.9 Hypotension, unspecified; R09.02 Hypoxemia; Z51.5 Encounter for palliative care; Z87.891 Personal history of nicotine dependence
CPT/HCPCS: 36415; 49180; 70470; 74019; 77012; 80048; 80053; 81003; 81015; 82533; 83735; 83930; 83935; 84300; 84443; 85025; 85027; 85610; 85730; 88172; 88173; 88305; 88341; 88342; 88360; 99219; 99232; 99233; A9270-GY; J0780; J1650; J1940; J2270; J3010; Q9967